=== PATIENT | male | born 1945 | race Caucasian/White ===

== ENCOUNTER → 2024-02-22 06:28 | Day surgery (SDC) | payer BC, SELFPAY ==
[2024-02-22 07:47] LABS: Glucose - Point of Care 119 mg/dl (70-99)
== END ==
LOC: GI 06:28
PROVIDERS: ATTENDING PHYSICIAN Specialist
DX: Z12.11 Encounter for screening for malignant neoplasm of colon (principal); K57.30 Diverticulosis of large intestine without perforation or abscess without bleeding; K64.8 Other hemorrhoids; Z86.010 Personal history of colon polyps
CPT/HCPCS: G0105; 82962